=== PATIENT | male | born 1990 ===

== ENCOUNTER 2024-04-30 12:37 | Emergency (ER) | payer OTHER ==
[~2024-04-30] VITALS: Ht 170.2 cm; Wt 69.9 kg
[2024-04-30] MEDS ORDERED: KETOROLAC TROMETHAMINE 60 MG VIAL IM ONE (14:15)
[2024-04-30] MEDS ORDERED: 0.9 % SODIUM CHLORIDE 1,000 ML IV ONE (14:15)
[2024-04-30] MEDS ORDERED: FAMOtidine 10 MG/ML (4ML VIAL) IV ONE (14:15)
[2024-04-30] MEDS ORDERED: ONDANSETRON HCL 2 MG/ML VIAL IV ONE (14:15)
[2024-04-30 15:01] LABS: HEMATOCRIT 45.9 % (39.0-48.0); MEAN CELL VOLUME 87.4 fL (80.0-100.00); MEAN CORPUSCULAR HEMOGLOBIN 30.5 pg (27.00-32.0); MEAN CORPUSCULAR HGB CONC 34.9 g/dl (32.0-36.0); PLATELET COUNT 263 K/uL (150-450); RED BLOOD COUNT 5.25 M/uL (4.00-6.00); RED CELL DISTRIBUTION WIDTH 13.5 % (11.5-14.5)
[2024-04-30 15:19] LABS: INR 1.02; PARTIAL THROMBOPLASTIN TIME 25.6 SECONDS (22.0-34.0); PROTHROMBIN TIME 11.1 SECONDS (9.0-11.5)
[2024-04-30 15:33] LABS: BILIRUBIN TOTAL 0.43 mg/dL (0.3-1.2); CALCIUM 9.1 mg/dL (8.5-10.1); CREATININE SERUM 0.85 mg/dL (0.70-1.30); GFR 104.46; GLOBULINA 3.8 G/DL (2.4-3.5); POTASSIUM 4.53 mEq/L (3.5-5.1); TOTAL PROTEIN 7.8 gm/dL (6.4-8.2)
[2024-04-30 20:14] LABS: PH,URINE 6.5 (5.0-8.0); URINE APPEARANCE Clear; URINE BILIRRUBIN Negative (NEGATIVE); URINE BLOOD Negative; URINE COLOR Yellow; URINE GLUCOSE Negative (NEGATIVE); URINE LEUKOCYTE Negative; URINE NITRATE Negative; URINE PROTEIN 30 (NEGATIVE); URINE UROBILINOGEN 0.2 E.U./dl
[2024-04-30 20:18] LABS: URINE EPITHELIAL CELLS 2.1 uL (0.0-38.8); URINE RBC 32.2 uL (0.0-20.8); URINE WBC 4.3 uL (0.0-23.2)
[2024-04-30 20:55] LABS: URINE KETONE 40 (NEGATIVE)
== END 2024-04-30 23:59 | disposition home or self-care (01) ==
LOC: ER 12:37
PROVIDERS: General Practice
DX: R11.2 Nausea with vomiting, unspecified (principal); R10.9 Unspecified abdominal pain
CPT/HCPCS: 36415; 74177; Q9965